=== PATIENT | male | born 2000 | race Two or more races ===

== ENCOUNTER 2018-07-01 17:42 | Emergency (ER) | payer SELFPAY ==
--- NOTE | 2018-07-01 18:07 | EDM.PDOC ---
ED HPI GENERAL MEDICAL PROBLEM - General Chief Complaint: Respiratory Problem Stated Complaint: ANXIETY Time Seen by Provider: 07/01/18 17:59 Source of Information: Reports: Patient History Limitations: Reports: No Limitations - History of Present Illness INITIAL COMMENTS - FREE TEXT/NARRATIVE: HISTORY AND PHYSICAL: History of present illness: Patient is a 18-year-old female who presents to the emergency room today with complaints of shortness of breath. He states he recently moved here from [place] and is currently unemployed. He describes this shortness of breath as intermittent and feels like it might be anxiety related. He states he has been "homesick" and under increased stress. States that his appetite has been low due to the stress. But has been able to eat and drink without difficulty. He denies any fever, chills, chest pain or cough. Denies any abdominal pain, nausea, vomiting, diarrhea or constipation. Review of systems: As per history of present illness and below otherwise all systems reviewed and negative. Past medical history: As per history of present illness and as reviewed below otherwise noncontributory. Surgical history: As per history of present illness and as reviewed below otherwise noncontributory. Social history: No reported history of drug or alcohol abuse. Family history: As per history of present illness and as reviewed below otherwise noncontributory. Physical exam: General: Well-developed and well-nourished 18-year-old male. Alert and oriented. Nontoxic appearing and in no acute distress. HEENT: Atraumatic, normocephalic, pupils equal and reactive bilaterally, negative for conjunctival pallor or scleral icterus, mucous membranes moist, throat clear, neck supple, nontender, trachea midline. No drooling or trismus noted. No meningeal signs Lungs: Clear to auscultation, breath sounds equal bilaterally, chest nontender. Heart: S1S2, regular rate and rhythm without overt murmur Abdomen: Soft, nondistended, nontender. Negative for masses or hepatosplenomegaly. Negative for costovertebral tenderness. Pelvis: Stable nontender. Genitourinary: Deferred. Rectal: Deferred. Skin: Intact, warm, dry. No lesions or rashes noted. Extremities: Atraumatic, negative for cords or calf pain. Neurovascular unremarkable. Neuro: Awake, alert, oriented. Cranial nerves II through XII unremarkable. Cerebellum unremarkable. Motor and sensory unremarkable throughout. Exam nonfocal. Notes: Chest x-ray is unremarkable. Did give him one tablet of Ativan while here, as he states he currently does feel anxious. He does have a ride home. Encouraged him to follow up and establish care with a primary care provider for further evaluation and management of his anxiety. He is agreeable to plan of care. Denies any further questions or concerns at this time. Diagnostics: Chest x-ray Therapeutics: Ativan 0.5 PO Prescription: None Impression: Anxiety Plan: 1. Chest x-ray was normal 2. Please establish care with a primary care provider for further evaluation and management of her anxiety. Return to the ED as needed and as discussed. Definitive disposition and diagnosis as appropriate pending reevaluation and review of above. - Related Data Allergies Allergy/AdvReac Type Severity Reaction Status Date / Time No Known Allergies Allergy Verified 07/01/18 17:56 Home Meds: Home Meds . [No Known Home Meds] 07/01/18 [History] Past Medical History HEENT History: Reports: None Cardiovascular History: Reports: None Respiratory History: Reports: None Gastrointestinal History: Reports: None Genitourinary History: Reports: None Musculoskeletal History: Reports: None Neurological History: Reports: None Psychiatric History: Reports: Anxiety Endocrine/Metabolic History: Reports: None Hematologic History: Reports: None Immunologic History: Reports: None Oncologic (Cancer) History: Reports: None Dermatologic History: Reports: None - Infectious Disease History Infectious Disease History: Reports: None - Past Surgical History Head Surgeries/Procedures: Reports: None Male Surgical History: Reports: None Social & Family History - Tobacco Use Smoking Status *Q: Never Smoker Second Hand Smoke Exposure: No - Recreational Drug Use Drug Use in Last 12 Months: Yes Recreational Drug Type: Reports: Marijuana/Hashish ED ROS GENERAL - Review of Systems Review Of Systems: ROS reveals no pertinent complaints other than HPI. ED EXAM, GENERAL - Physical Exam Exam: See Below (See dictation) Course - Vital Signs Last Recorded V/S: Last Vital Signs Temp 98.2 F 07/01/18 17:53 Pulse 72 07/01/18 17:53 Resp 20 07/01/18 17:53 BP 153/90 H 07/01/18 18:01 Pulse Ox 98 07/01/18 17:53 - Orders/Labs/Meds Orders: Active Orders 24 hr Category Date Time Status Chest 2V [CR] Stat Exams 07/01/18 18:07 Taken Meds: Medications Discontinued Medications Generic Name Dose Route Start Last Admin Trade Name Marco Antonio PRN Reason Stop Dose Admin Lorazepam 0.5 mg 07/01/18 18:18 07/01/18 18:24 Ativan PO 07/01/18 18:19 0.5 mg ONETIME ONE Administration Departure - Departure Time of Disposition: 18:48 Disposition: Home, Self-Care 01 Clinical Impression: Anxiety - Discharge Information Referrals: PCP,None [Primary Care Provider] - Forms: ED Department Discharge Additional Instructions: The following information is given to patients seen in the emergency department who are being discharged to home. This information is to outline your options for follow-up care. We provide all patients seen in our emergency department with a follow-up referral. The need for follow-up, as well as the timing and circumstances, are variable depending upon the specifics of your emergency department visit. If you don't have a primary care physician on staff, we will provide you with a referral. We always advise you to contact your personal physician following an emergency department visit to inform them of the circumstance of the visit and for follow-up with them and/or the need for any referrals to a consulting specialist. The emergency department will also refer you to a specialist when appropriate. This referral assures that you have the opportunity for follow-up care with a specialist. All of these measure are taken in an effort to provide you with optimal care, which includes your follow-up. Under all circumstances we always encourage you to contact your private physician who remains a resource for coordinating your care. When calling for follow-up care, please make the office aware that this follow-up is from your recent emergency room visit. If for any reason you are refused follow-up, please contact the [facility] Emergency Department at and asked to speak to the emergency department charge nurse. [facility] [address] [place] [address] [id number] [address] [address] 1. Chest x-ray was normal 2. Please establish care with a primary care provider for further evaluation and management of her anxiety. Return to the ED as needed and as discussed. - My Orders Last 24 Hours: My Active Orders 07/01/18 18:07 Chest 2V [CR] Stat - Assessment/Plan Last 24 Hours: My Active Orders 07/01/18 18:07 Chest 2V [CR] Stat
[2018-07-01] MEDS ORDERED: LORazepam 0.5 MG Tab PO ONE (18:18)
--- NOTE | 2018-07-02 10:04 | CR ---
EXAM DATE: 07/01/18 PATIENT'S AGE: 18 Patient: ALLA SIMMONS Facility: [place], [place] Site . Site : 1998 Study: XRay Chest [id number] 6:44:23 PM Ordering Physician: Doctor Boudreaux Final Report: HISTORY: Shortness of breath. Anxiety. TECHNIQUE: Two-view chest. COMPARISON: None. FINDINGS: Lungs are clear. No pleural effusion or pneumothorax. Pulmonary vasculature is within normal limits. Cardiomediastinal silhouette is within normal limits. IMPRESSION: Normal chest x-ray. Dictated by Mello Schwartz MD @ Jul 01 2018 7:12PM (Electronic Signature) Report Signed by Proxy. SORIN
== END 2018-07-01 19:00 | disposition home or self-care (01) ==
LOC: MW.ED 17:42
DX: F41.9 Anxiety disorder, unspecified (principal)
CPT/HCPCS: 71046; 99283; A9270